=== PATIENT | male | born 1935 | race Caucasian/White ===

== ENCOUNTER 2016-10-19 18:38 | Emergency (ER) | payer MEDICARE ==
--- NOTE | 2016-10-19 18:57 | Emergency Department Record ---
History of Present Illness - General Chief complaint: Male Urogenital Problem Stated complaint: BLOOD IN URIN Time Seen by Provider: 10/19/16 18:52 Source: Patient Mode of Arrival: Ambulatory Limitations: No limitations - History of Present Illness Initial comments: 81 yo male presents to ED with a CC of "blood in the urine" that began a couple of hours ago. Patient reports that he was diagnosed with UTI earlier this morning, started on antibiotics. Patient reports a history of urinary retention symptoms resulting in self cath once a week. Patient denies any injury or trauma to the abdomen/flanks, denies previous UTIs with blood in the urine. Patient reports that he does not take a any blood thinners either. MD Complaint: Other (hematuria) Onset/Timin -: Days(s) Radiation: None Severity: Moderate Consistency: Other Improves with: None Worsens with: None Reports: Blood in urine - Related Data Sexually active: No Home Medications Medication Instructions Recorded Confirmed Last Taken Atorvastatin Calcium [Lipitor] 40 mg PO DAILY 03/13/14 10/19/16 03/12/14 Felodipine [Felodipine ER] 10 mg PO DAILY 03/13/14 10/19/16 03/12/14 Glipizide [Glipizide] 5 mg PO DAILY 03/13/14 10/19/16 03/12/14 Lisinopril/Hydrochlorothiazide 1 each PO DAILY 03/13/14 10/19/16 03/12/14 [Lisinopril-Hctz 10-12.5 mg Tab] Metformin HCl [Metformin HCl] 1,000 mg PO DAILY 03/13/14 10/19/16 03/12/14 Metoprolol/Hydrochlorothiazide 1 each PO DAILY 03/13/14 10/19/16 03/12/14 [Metoprolol-Hctz 100-50 mg Tab] Cinnamon Bark [Cinnamon] 1,000 mg PO DAILY 12/21/14 10/19/16 Unknown Tamsulosin HCl 0.4 mg PO BID cap 07/13/16 10/19/16 Unknown Aspirin 81 mg PO QD tab.chew 10/19/16 10/19/16 Unknown Allergies Allergy/AdvReac Type Severity Reaction Status Date / Time No Known Allergies Allergy Unverified 10/19/16 09:41 Travel Screening - Travel/Exposure Within Last 30 Days Have you traveled within the last 30 days?: No Review of Systems Constitutional: Denies: Chills, Fever, Malaise, Night sweats Eyes: Denies: Eye discharge, Eye pain ENT: Denies: Congestion, Ear pain, Epistaxis Respiratory: Denies: Cough, Dyspnea Cardiovascular: Denies: Chest pain, Dyspnea on exertion Endocrine: Denies: Fatigue, Heat or cold intolerance Gastrointestinal: Denies: Abdominal pain, Nausea, Vomiting Genitourinary: Reports: Hematuria, Retention. Denies: Incontinence, Testicular pain, Testicular mass Musculoskeletal: Denies: Arthralgia, Back pain Skin: Denies: Bruising, Change in color Neurological: Denies: Abnormal gait, Confusion, Headache, Tingling Psychiatric: Denies: Anxiety Hematological/Lymphatic: Denies: Anemia, Blood Clots Past Medical History - SOCIAL HISTORY Smoking Status: Never smoker Alcohol Use: None Drug Use: None - RESPIRATORY Hx Respiratory Disorders: No - CARDIOVASCULAR Hx Cardio Disorders: Yes Hx Heart Attack: Yes Hx Hypertension: Yes - NEURO Hx Neuro Disorders: No - GI Hx GI Disorders: No - Hx Genitourinary Disorders: Yes Hx Kidney Stones: Yes Hx Prostate Problems: Yes Hx UTI: Yes - ENDOCRINE Hx Endocrine Disorders: Yes Hx Diabetes: Yes - MUSCULOSKELETAL Hx Musculoskeletal Disorders: Yes Hx Back Injury: Yes - PSYCH Hx Psych Problems: No - HEMATOLOGY/ONCOLOGY Hx Hematology/Oncology Disorders: No Family Medical History Any Significant Family History?: No Physical Exam - General General Appearance: Alert, Oriented x3, Cooperative, No acute distress Limitations: No limitations - Head Head exam: Atraumatic, Normocephalic, Normal inspection Head exam detail: negative: Abrasion, Contusion, Amaya's sign, General tenderness, Hematoma, Laceration - Eye Eye exam: Normal appearance. negative: Conjunctival injection, Periorbital swelling, Periorbital tenderness - ENT Ear exam: negative: Auricular hematoma, Auricular trauma Nasal Exam: negative: Active bleeding, Discharge, Dried blood, Foreign body Mouth exam: negative: Drooling, Laceration, Muffled voice, Tongue elevation - Neck Neck exam: Normal inspection. negative: Meningismus, Tenderness - Respiratory Respiratory exam: Normal lung sounds bilaterally. negative: Respiratory distress, Rhonchi, Stridor, Wheezes - Cardiovascular Cardiovascular Exam: Regular rate, Normal rhythm, Normal heart sounds - GI/Abdominal GI/Abdominal exam: Soft. negative: Organomegaly, Rebound, Rigid, Tenderness - Rectal Rectal exam: Deferred - exam: Circumcision, Normal inspection, Other (no obvious traumatic injury from cathing himself). negative: Scrotal swelling, Testicular tenderness, Urethral discharge - Extremities Extremities exam: Normal inspection. negative: Pedal edema, Tenderness - Back Back exam: Denies: CVA tenderness (R), CVA tenderness (L) - Neurological Neurological exam: Alert, Normal gait, Oriented X3 - Psychiatric Psychiatric exam: Normal affect, Normal mood - Skin Skin exam: Normal color. negative: Abrasion Type of lesion: negative: abrasion Course Vital Signs 10/19/16 18:42 Temperature 97.7 F Pulse Rate 81 Respiratory 18 Rate Blood Pressure 152/65 Pulse Ox 97 - Reevaluation(s) Reevaluation #1: 10/19/16 19:41 Labs reviewed, Glucose 260, UA demonstrates RBCs TNTC, WBCs TNTC. Labs are otherwise grossly unremarkable for an acute process. Reevaluation #2: 10/19/16 20:53 CT Abdomen and Pelvis: Hydronephrosis and [place]-ureter left, no calculus present , small mass may be present at the left UVJ, re-implantation right ureter previously, cholelithiasis without cholecystitis. Reevaluation #3: 10/19/16 20:59 Rocephin has completed infusing, labs are otherwise grossly unremarkable for an acute process. Patient appears stable for discharge at this time with continuation of his Cipro and instructions to follow-up with Dr. Shah in 3-5 days for further evaluation and possible cystoscopy for left sided ureteral lesion/mass. Both the patient and his were updated on all results. Patient appears stable for discharge at this time. Medical Decision Making - Lab Data Result diagrams: 10/19/16 19:05 10/19/16 19:05 Disposition Disposition: Discharge Clinical Impression: Hematuria, History of urinary retention UTI (urinary tract infection) Qualifiers: Urinary tract infection type: acute cystitis Hematuria presence: with hematuria Qualified Code(s): N30.01 - Acute cystitis with hematuria Disposition: Home, Self-Care Condition: (2) Stable Instructions: Acute Hematuria (ED) Additional Instructions: Return to ED if your symptoms worsen or if you have any concerns. Continue Cipro as prescribed. Follow-up with Dr. Castaneda in 3-5 days as directed. Referrals: LESLIE LUEVANO [] - Forms: Patient Portal Access Time of Disposition: 21:03
[2016-10-19 19:24] LABS: BASO % 0.5 % (0-6); EOS % 3.4 % (0-6); HEMATOCRIT 40.8 % (42.0-52.0); HEMOGLOBIN 13.2 gm/dl (14.0-18.0); LYMPH % 17.4 % (16-45); MEAN CELL VOLUME 86.4 fl (81-97); MEAN CORPUSCULAR HGB CONC 32.4 g/dl (32-36); MEAN PLATELET VOLUME 9.9 fl (7.4-10.4); MONO % 12.7 % (0-9); PLATELET COUNT 281 K/uL (130-400); RED BLOOD COUNT 4.72 M/uL (4.40-5.70); RED CELL DISTRIBUTION WIDTH 14.1 % (11.5-14.5); WHITE BLOOD COUNT W/O DIFF 7.7 K/uL (4.2-12.2)
[2016-10-19 19:25] LABS: MEAN CORPUSCULAR HEMOGLOBIN 27.9 pg (27-33); URINE APPEARANCE CLOUDY; URINE BILIRUBIN NEGATIVE (NEGATIVE); URINE BLOOD LARGE (NEGATIVE); URINE COLOR YELLOW; URINE KETONE NEGATIVE (NEGATIVE); URINE LEUKOCYTE ESTERASE LARGE (NEGATIVE); URINE NITRITE POSITIVE (NEGATIVE); URINE UROBILINOGEN 0.2 E.U./dL (0.20 - 1.00)
[2016-10-19 19:29] LABS: URINE EPITHELIAL CELLS NONE SEEN (FEW)
[2016-10-19 19:30] LABS: URINE BACTERIA 1+
[2016-10-19 19:37] LABS: INR 1.01; PROTHROMBIN TIME (PATIENT) 11.4 SECONDS (9.5-12.1)
[2016-10-19 19:39] LABS: ALB/GLOB RATIO 1.5 (1.1-1.8); ALBUMIN 3.7 gm/dL (3.5-5.0); ALKALINE PHOSPHATASE 82 U/L (38-126); ALT/SGPT 31 U/L (21-72); ANION GAP 8.2 (7-16); AST/SGOT 17 U/L (17-59); BILIRUBIN,TOTAL 0.33 mg/dL (0.2-1.3); BLOOD UREA NITROGEN 26 mg/dL (9-20); CARBON DIOXIDE 23.8 mmol/L (22-30); EST GLOMERULAR FILTRATION RATE > 60 ml/min; GLUCOSE,RANDOM 260 mg/dL (70-110); TOTAL PROTEIN 6.2 gm/dL (6.3-8.2)
[2016-10-19] MEDS ORDERED: CEFTRIAXONE SODIUM 1 GM in 0.9 % SODIUM CHLORIDE 100ML 100 ML IVPB ONE (19:55)
== END 2016-10-19 21:13 | disposition home or self-care (01) ==
LOC: ER 18:38
DX: N30.01 Acute cystitis with hematuria (principal); R33.9 Retention of urine, unspecified; E11.9 Type 2 diabetes mellitus without complications; Z79.84 Long term (current) use of oral hypoglycemic drugs; I10 Essential (primary) hypertension; I25.2 Old myocardial infarction
CPT/HCPCS: 74176; 80053; 81001; 85025; 85610; 96365; 99284

== ENCOUNTER 2016-10-20 08:56 | Emergency (ER) | payer MEDICARE ==
[2016-10-20] MEDS ORDERED: CIPROFLOXACIN HCL 500 MG TABLET PO ONE (09:22)
--- NOTE | 2016-10-20 09:34 | Emergency Department Record ---
History of Present Illness - General Chief complaint: Male Urogenital Problem Stated complaint: BLOOD IN URINE Time Seen by Provider: 10/20/16 09:08 Source: Patient, Family Mode of Arrival: Ambulatory Limitations: No limitations - History of Present Illness Initial comments: The patient is here due to having been diagnosed with a UTI yesterday and now having more hematuria. He was in the ED last evening with the same thing and did have a CT done that demonstrated L hydronephrosis and hydroureter but no stone present. There may be a small mass at the L UVJ. He did receive IV Rocephin and was discharged on Cipro and was instructed to see his Urologist next week. Now since he developed more hematuria he decided to return to the ER. He denies any significant AP, or any nausea or vomiting and does feel he is able to void fully and is not retaining urine. Complaint: Dysuria Onset/Timin -: Days(s) Radiation: None Reports: Blood in urine - Related Data Home Medications Medication Instructions Recorded Confirmed Last Taken Atorvastatin Calcium [Lipitor] 40 mg PO DAILY 03/13/14 10/20/16 10/19/16 Felodipine [Felodipine ER] 10 mg PO DAILY 03/13/14 10/20/16 10/20/16 Glipizide [Glipizide] 5 mg PO DAILY 03/13/14 10/20/16 10/20/16 Lisinopril/Hydrochlorothiazide 1 each PO DAILY 03/13/14 10/20/16 10/20/16 [Lisinopril-Hctz 10-12.5 mg Tab] Metformin HCl [Metformin HCl] 1,000 mg PO DAILY 03/13/14 10/20/16 10/20/16 Metoprolol/Hydrochlorothiazide 1 each PO DAILY 03/13/14 10/20/16 10/20/16 [Metoprolol-Hctz 100-50 mg Tab] Cinnamon Bark [Cinnamon] 1,000 mg PO DAILY 12/21/14 10/20/16 10/20/16 Tamsulosin HCl 0.4 mg PO BID cap 07/13/16 10/20/16 10/20/16 Aspirin 81 mg PO QD tab.chew 10/19/16 10/20/16 10/19/16 Allergies Allergy/AdvReac Type Severity Reaction Status Date / Time No Known Allergies Allergy none Verified 10/20/16 09:07 Travel Screening - Travel/Exposure Within Last 30 Days Have you traveled within the last 30 days?: No - Travel/Exposure Within Last Year Have you traveled outside the [place] in the last year?: No - Additonal Travel Details Have you been exposed to anyone with a communicable illness?: No - Travel Symptoms Symptom Screening: None Review of Systems Constitutional: Denies: Chills, Fever Eyes: Denies: Eye discharge ENT: Denies: Congestion Respiratory: Denies: Cough, Dyspnea Past Medical History - SOCIAL HISTORY Smoking Status: Never smoker Alcohol Use: None Drug Use: None - RESPIRATORY Hx Respiratory Disorders: No - CARDIOVASCULAR Hx Cardio Disorders: Yes Hx Heart Attack: Yes Hx Hypertension: Yes - NEURO Hx Neuro Disorders: No - GI Hx GI Disorders: No - Hx Genitourinary Disorders: Yes Hx Kidney Stones: Yes Hx Prostate Problems: Yes Hx UTI: Yes - ENDOCRINE Hx Endocrine Disorders: Yes Hx Diabetes: Yes - MUSCULOSKELETAL Hx Musculoskeletal Disorders: Yes Hx Back Injury: Yes - PSYCH Hx Psych Problems: No - HEMATOLOGY/ONCOLOGY Hx Hematology/Oncology Disorders: No Family Medical History Any Significant Family History?: No Physical Exam - General General Appearance: Alert, Oriented x3, Cooperative, No acute distress - Head Head exam: Atraumatic, Normocephalic, Normal inspection - Eye Eye exam: Normal appearance, PERRL - Neck Neck exam: Normal inspection, Full ROM. negative: Tenderness - Respiratory Respiratory exam: Normal lung sounds bilaterally. negative: Respiratory distress - Cardiovascular Cardiovascular Exam: Regular rate, Normal rhythm, Normal heart sounds, Diastolic murmur - GI/Abdominal GI/Abdominal exam: Soft, Normal bowel sounds. negative: Guarding, Rebound, Rigid, Tenderness - exam: Circumcision, Normal inspection. negative: Scrotal swelling - Extremities Extremities exam: Normal inspection, Full ROM, Normal capillary refill. negative: Tenderness Course Vital Signs 10/20/16 09:00 Temperature 97.6 F Pulse Rate 85 Respiratory 18 Rate Blood Pressure 126/62 Pulse Ox 97 - Reevaluation(s) Reevaluation #1: The patient is doing very well. He did have almost 500 cc's of urine in his bladder on bladder scanning after urinating so we did place a mercer catheter and got 600 cc's of urine out. The urine now is very clear with no obvious blood and no clots. We will be discharging the patient with the catheter in place. 10/20/16 10:54 Medical Decision Making - Lab Data Result diagrams: 10/20/16 09:30 10/20/16 09:30 Disposition Disposition: Discharge Clinical Impression: History of urinary retention UTI (urinary tract infection) Qualifiers: Urinary tract infection type: acute cystitis Hematuria presence: with hematuria Qualified Code(s): N30.01 - Acute cystitis with hematuria Disposition: Home, Self-Care Condition: (1) Good Instructions: Urinary Tract Infection in Men (ED), [place] Catheter Placement and Care (ED) Additional Instructions: Please drink plenty of fluids and take your Cipro as directed. Please see your Urologist early next week for recheck and to have the leg bag removed. Please return to the ER by Sunday if you are unable to see your Urologist to have your bag removed. Forms: Patient Portal Access Time of Disposition: 11:11
[2016-10-20 09:42] LABS: HEMATOCRIT 42.8 % (42.0-52.0); HEMOGLOBIN 13.7 gm/dl (14.0-18.0); MEAN CELL VOLUME 85.4 fl (81-97); MEAN CORPUSCULAR HEMOGLOBIN 27.3 pg (27-33); MEAN PLATELET VOLUME 9.8 fl (7.4-10.4); PLATELET COUNT 284 K/uL (130-400); RED BLOOD COUNT 5.01 M/uL (4.40-5.70); RED CELL DISTRIBUTION WIDTH 14.1 % (11.5-14.5); WHITE BLOOD COUNT W/O DIFF 7.2 K/uL (4.2-12.2)
[2016-10-20 09:54] LABS: PLATELET ESTIMATE NORMAL (NORMAL)
[2016-10-20 09:59] LABS: BLOOD UREA NITROGEN 23 mg/dL (9-20); CREATININE 0.9 mg/dL (0.66-1.25); EST GLOMERULAR FILTRATION RATE > 60 ml/min; GLUCOSE,RANDOM 210 mg/dL (70-110)
[2016-10-20 10:07] LABS: URINE APPEARANCE CLOUDY; URINE BILIRUBIN NEGATIVE (NEGATIVE); URINE BLOOD LARGE (NEGATIVE); URINE COLOR YELLOW; URINE KETONE NEGATIVE (NEGATIVE); URINE LEUKOCYTE ESTERASE MODERATE (NEGATIVE); URINE NITRITE NEGATIVE (NEGATIVE); URINE PROTEIN NEGATIVE (NEGATIVE); URINE UROBILINOGEN 0.2 E.U./dL (0.20 - 1.00)
[2016-10-20 10:14] LABS: URINE BACTERIA FEW; URINE EPITHELIAL CELLS NONE SEEN (FEW); URINE WBC 36 - 50 (0-2/hpf)
--- NOTE | 2016-10-20 11:25 | Emergency Department Record ---
History of Present Illness - General Chief complaint: Male Urogenital Problem Stated complaint: BLOOD IN URINE Time Seen by Provider: 10/20/16 09:08 Source: Patient, Family Mode of Arrival: Ambulatory Limitations: No limitations - History of Present Illness Onset/Timin -: Days(s) Radiation: None Reports: Blood in urine - Related Data Home Medications Medication Instructions Recorded Confirmed Last Taken Atorvastatin Calcium [Lipitor] 40 mg PO DAILY 03/13/14 10/20/16 10/19/16 Felodipine [Felodipine ER] 10 mg PO DAILY 03/13/14 10/20/16 10/20/16 Glipizide [Glipizide] 5 mg PO DAILY 03/13/14 10/20/16 10/20/16 Lisinopril/Hydrochlorothiazide 1 each PO DAILY 03/13/14 10/20/16 10/20/16 [Lisinopril-Hctz 10-12.5 mg Tab] Metformin HCl [Metformin HCl] 1,000 mg PO DAILY 03/13/14 10/20/16 10/20/16 Metoprolol/Hydrochlorothiazide 1 each PO DAILY 03/13/14 10/20/16 10/20/16 [Metoprolol-Hctz 100-50 mg Tab] Cinnamon Bark [Cinnamon] 1,000 mg PO DAILY 12/21/14 10/20/16 10/20/16 Tamsulosin HCl 0.4 mg PO BID cap 07/13/16 10/20/16 10/20/16 Aspirin 81 mg PO QD tab.chew 10/19/16 10/20/16 10/19/16 Allergies Allergy/AdvReac Type Severity Reaction Status Date / Time No Known Allergies Allergy none Verified 10/20/16 09:07 Travel Screening - Travel/Exposure Within Last 30 Days Have you traveled within the last 30 days?: No - Travel/Exposure Within Last Year Have you traveled outside the [place] in the last year?: No - Additonal Travel Details Have you been exposed to anyone with a communicable illness?: No - Travel Symptoms Symptom Screening: None Review of Systems Constitutional: Denies: Chills, Fever Eyes: Denies: Eye discharge ENT: Denies: Congestion Respiratory: Denies: Cough, Dyspnea Past Medical History - SOCIAL HISTORY Smoking Status: Never smoker Alcohol Use: None Drug Use: None - RESPIRATORY Hx Respiratory Disorders: No - CARDIOVASCULAR Hx Cardio Disorders: Yes Hx Heart Attack: Yes Hx Hypertension: Yes - NEURO Hx Neuro Disorders: No - GI Hx GI Disorders: No - Hx Genitourinary Disorders: Yes Hx Kidney Stones: Yes Hx Prostate Problems: Yes Hx UTI: Yes - ENDOCRINE Hx Endocrine Disorders: Yes Hx Diabetes: Yes - MUSCULOSKELETAL Hx Musculoskeletal Disorders: Yes Hx Back Injury: Yes - PSYCH Hx Psych Problems: No - HEMATOLOGY/ONCOLOGY Hx Hematology/Oncology Disorders: No Family Medical History Any Significant Family History?: No Physical Exam - General Limitations: No limitations Course Vital Signs 10/20/16 09:00 Temperature 97.6 F Pulse Rate 85 Respiratory 18 Rate Blood Pressure 126/62 Pulse Ox 97 - Reevaluation(s) Reevaluation #1: I did make multiple attempts to contact the patient's Urologist but he is unavailable. We were able to get the patient an appointment for next Sunday. 10/20/16 11:24 Medical Decision Making - Lab Data Result diagrams: 10/20/16 09:30 10/20/16 09:30 Lab Results 10/20/16 10/20/16 10/20/16 Range/Units 09:30 09:30 10:00 WBC 7.2 (4.2-12.2) K/uL RBC 5.01 (4.40-5.70) M/uL Hgb 13.7 L (14.0-18.0) gm/dl Hct 42.8 (42.0-52.0) % MCV 85.4 (81-97) fl MCH 27.3 (27-33) pg MCHC 32.0 (32-36) g/dl RDW 14.1 (11.5-14.5) % Plt Count 284 (130-400) K/uL MPV 9.8 (7.4-10.4) fl Neutrophils % 56.0 (47-80) % Lymphocytes % 21.0 (16-45) % Monocytes % 18.0 H (0-9) % Eosinophils % 5.0 (0-6) % Basophils % Not Reportable Platelet Estimate Normal (NORMAL) RBC Morphology Normal Sodium 134 L (136-145) mmol/L Potassium 3.9 (3.5-5.1) mmol/L Chloride 100 (98-107) mmol/L Carbon Dioxide 24.0 (22-30) mmol/L Anion Gap 10.0 (7-16) BUN 23 H (9-20) mg/dL Creatinine 0.9 (0.66-1.25) mg/dL Estimated GFR > 60 ml/min Random Glucose 210 H (70-110) mg/dL Calcium 9.1 (8.5-10.1) mg/dL Urine Color Yellow Urine Appearance Cloudy Urine pH 6.0 (5.0-8.0) Ur Specific [place] <= 1.005 (1.002-1.030) Urine Protein Negative (NEGATIVE) Urine Glucose (UA) 250 mg/dl H (NEGATIVE) Urine Ketones Negative (NEGATIVE) Urine Blood Large H (NEGATIVE) Urine Nitrite Negative (NEGATIVE) Urine Bilirubin Negative (NEGATIVE) Urine Urobilinogen 0.2 (0.20 - 1.00) E.U./dL Ur Leukocyte Esterase Moderate H (NEGATIVE) Urine RBC Too numerous to cnt (NONE SEEN) Urine WBC 36 - 50 (0-2/hpf) Ur Epithelial Cells None seen (FEW) Urine Bacteria Few Disposition Clinical Impression: History of urinary retention UTI (urinary tract infection) Qualifiers: Urinary tract infection type: acute cystitis Hematuria presence: with hematuria Qualified Code(s): N30.01 - Acute cystitis with hematuria Disposition: Home, Self-Care Condition: (1) Good Instructions: Urinary Tract Infection in Men (ED), [place] Catheter Placement and Care (ED) Additional Instructions: Please drink plenty of fluids and take your Cipro as directed. Please see your Urologist early next week for recheck and to have the leg bag removed. Please return to the ER by Sunday if you are unable to see your Urologist to have your bag removed. Forms: Patient Portal Access
== END 2016-10-20 11:54 | disposition home or self-care (01) ==
LOC: ER 08:56
DX: N30.01 Acute cystitis with hematuria (principal); R30.0 Dysuria; R33.9 Retention of urine, unspecified; E11.9 Type 2 diabetes mellitus without complications; I10 Essential (primary) hypertension; I25.2 Old myocardial infarction
CPT/HCPCS: 80048; 81001; 85027; 99283; 99284